=== PATIENT | male | born 1965 ===

== ENCOUNTER 2018-04-26 20:24 | Emergency (ER) | payer OTHER | END 2018-04-26 23:49 | disposition home or self-care (01) | LOC: ERS 20:24 | DX: L03.011 Cellulitis of right finger (principal); E11.9 Type 2 diabetes mellitus without complications; I10 Essential (primary) hypertension; Z79.84 Long term (current) use of oral hypoglycemic drugs; Z79.899 Other long term (current) drug therapy | CPT/HCPCS: 10060 ==